=== PATIENT | female | born 1965 | race Caucasian/White ===

== ENCOUNTER 2018-09-02 07:26 | Emergency (ER) | payer MEDICARE, MEDICAID ==
[~2018-09-02] VITALS: Ht 162.6 cm; Wt 104.5 kg
[~2018-09-02 07:26] MED LIST: LORA10TA7 PO; OXYC-150 PO
[2018-09-02 07:33] VITALS: BP 165/114
[2018-09-02] MEDS ORDERED: ketorolac tromethamine 15mg/ml inj. IM ONE (10:05)
== END 2018-09-02 10:48 | disposition home or self-care (01) ==
LOC: ER 07:27
DX: G89.29 Other chronic pain (principal); M54.9 Dorsalgia, unspecified; R10.30 Lower abdominal pain, unspecified
CPT/HCPCS: 72100; 96372; 99283; J1885

== ENCOUNTER 2019-07-17 09:01 | Emergency (ER) | payer MEDICARE, MEDICAID ==
[~2019-07-17] VITALS: Ht 162.6 cm; Wt 110.0 kg
[2019-07-17 10:27] LABS: BASOPHILS % (AUTO) 0.6 % (0-1); EOSINOPHILS # (AUTO) 0.1 X10'3 (0-0.9); EOSINOPHILS % (AUTO) 1.5 % (0-6); HEMATOCRIT 39.7 % (35.0-45.0); HEMOGLOBIN 13.6 g/dl (12.0-16.0); LYMPHOCYTES # (AUTO) 1.2 X10'3 (1.1-4.8); LYMPHOCYTES % (AUTO) 17.1 % (21-51); MEAN CORPUSCULAR HEMOGLOBIN 29.4 PG (27.0-31.0); MEAN CORPUSCULAR HGB CONC 34.3 g/dL (33.0-36.5); MEAN CORPUSCULAR VOLUME 85.6 FL (78-98); MONOCYTES # (AUTO) 0.5 X10'3 (0-0.9); MONOCYTES % (AUTO) 7.4 % (2-12); NEUTROPHILS # (AUTO) 5.2 X10'3 (1.8-7.7); NEUTROPHILS % (AUTO) 73.4 % (42-75); PLATELET COUNT 232 X10'3 (140-440); RED BLOOD COUNT 4.64 X10'6 (4.20-5.60); RED CELL DISTRIBUTION WIDTH 12.4 % (11.5-14.5); WHITE BLOOD COUNT 7.1 X10'3 (4.5-11.0)
[2019-07-17 10:33] LABS: ALANINE AMINOTRANSFERASE 101 U/L (12-78); ALBUMIN 4.1 G/DL (3.4-5.0); ALBUMIN/GLOBULIN RATIO 1.1 (1.1-1.5); ALKALINE PHOSPHATASE 103 IU/L (46-116); ANION GAP 9 (8-16); ASPARTATE AMINO TRANSFERASE 61 U/L (10-37); BILIRUBIN,TOTAL 0.4 MG/DL (0.1-1.0); BLOOD UREA NITROGEN 10 MG/DL (7-18); BUN/CREATININE RATIO 10.8 (6.6-38.0); CALCIUM 9.5 MG/DL (8.5-10.1); CHLORIDE 100 MMOL/L (99-107); CREATININE 0.93 MG/DL (0.40-0.90); GLUCOSE 268 MG/DL (70-104); POTASSIUM 4.1 MMOL/L (3.5-5.1); SODIUM 136 MMOL/L (135-145); TOTAL CARBON DIOXIDE 27.2 MMOL/L (24-32); TOTAL PROTEIN 7.9 G/DL (6.4-8.2); eGFR 63 ML/MIN
[2019-07-17 11:24] VITALS: BP 144/93
[2019-07-17] MEDS ORDERED: ketorolac trometh inj. 60 MG/2 ML VIAL IM ONE (12:00)
== END 2019-07-17 12:11 | disposition home or self-care (01) ==
LOC: ER 09:02
DX: R73.9 Hyperglycemia, unspecified (principal); M79.652 Pain in left thigh; R20.0 Anesthesia of skin; G89.29 Other chronic pain; M79.7 Fibromyalgia; F41.9 Anxiety disorder, unspecified; Z98.890 Other specified postprocedural states; Z79.899 Other long term (current) drug therapy
CPT/HCPCS: 36415; 80053; 85025; 96372; 99283; J1885

== ENCOUNTER 2020-12-28 06:54 | Day surgery (SDC) | payer MEDICARE, MEDICAID ==
[2020-12-20 15:33] LABS: BASOPHILS # (AUTO) 0.1 X10'3 (0-0.2); BASOPHILS % (AUTO) 0.6 % (0-1); EOSINOPHILS # (AUTO) 0.2 X10'3 (0-0.9); EOSINOPHILS % (AUTO) 2.7 % (0-6); LYMPHOCYTES # (AUTO) 2.1 X10'3 (1.1-4.8); LYMPHOCYTES % (AUTO) 24.8 % (21-51); MEAN CORPUSCULAR HEMOGLOBIN 29.2 PG (27.0-31.0); MEAN CORPUSCULAR HGB CONC 33.5 g/dL (33.0-36.5); MEAN CORPUSCULAR VOLUME 87.4 FL (78-98); MEAN PLATELET VOLUME 8.5 FL (7.4-10.4); MONOCYTES # (AUTO) 0.6 X10'3 (0-0.9); MONOCYTES % (AUTO) 7.1 % (2-12); NEUTROPHILS # (AUTO) 5.5 X10'3 (1.8-7.7); NEUTROPHILS % (AUTO) 64.8 % (42-75); PRE OP HEMATOCRIT 41.9 % (35.0-45.0); PRE OP PLATELET COUNT 300 X10'3 (140-440); RED CELL DISTRIBUTION WIDTH 12.8 % (11.5-14.5)
[2020-12-20 15:53] LABS: ALBUMIN 4.1 G/DL (3.4-5.0); ALBUMIN/GLOBULIN RATIO 1.1 (1.1-1.5); ALKALINE PHOSPHATASE 99 IU/L (46-116); BLOOD UREA NITROGEN 16 MG/DL (7-18); BUN/CREATININE RATIO 20.8 (6.6-38.0); CALCIUM 9.3 MG/DL (8.5-10.1); CHLORIDE 101 MMOL/L (99-107); CREATININE 0.77 MG/DL (0.40-0.90); PRE OP ALT 42 U/L (30-65); PRE OP ANION GAP 9 (8-16); PRE OP AST 27 U/L (10-37); PRE OP BILIRUB, TOTAL 0.6 MG/DL (0.0-1.0); PRE OP GLUCOSE 110 MG/DL (70-104); PRE OP POTASSIUM 3.8 MMOL/L (3.4-5.1); PRE OP SODIUM 139 MMOL/L (135-145); eGFR 78 ML/MIN
[~2020-12-28] VITALS: Ht 160 cm; Wt 102.1 kg
[2020-12-28] VITALS (7 sets, daily range): BP systolic 112–142; BP diastolic 52–82
[~2020-12-28 06:54] MED LIST changes: +ATOR40TA72 PO; +BUPIVAcaine/PF 2.5mg/ml (0.25%) 10ml vial ONE; +BUPR450F2 PO; +DULO60CA65 PO; +GABA800T11 PO; +HYDR12.55 PO; +LISI10TA27 PO; -LORA10TA7 PO; +METF-950 PO; -OXYC-150 PO; +OXYC15TA PO; +SITA100T15 PO; +TIZA4TAB5 PO; +TRAZ-256 PO; +cefazolin/dext.iso 2gm/100ml IV ONE; +famotidine 20mg tablet PO ONE; +ringers solution, lacted 1,000 ML IV SCH
[2020-12-28] MEDS ORDERED: cloNIDine hcl/PF 100mcg/ml inj ONE (08:52)
[2020-12-28] MEDS ORDERED: fentaNYL/PF 50MCG/1 ML 2ML syringe ONE (08:53)
[2020-12-28] MEDS ORDERED: midazolam 1 mg/ML 2ml injection ONE (08:53)
[2020-12-28] MEDS ORDERED: propofol inj 20 ML IV ONE (08:53)
[2020-12-28] MEDS ORDERED: ROPIVAcaine 0.5% (5mg/ml) 30ml vial ONE (08:54)
[2020-12-28] MEDS ORDERED: sevoflurane 250ml liquid IH ONE (09:08)
[2020-12-28] MEDS ORDERED: ringers solution, lacted 1,000 ML IV SCH (10:00)
[2020-12-28] MEDS ORDERED: meperidine/PF 25mg/ml syringe IV PRN ×3 (10:00)
[2020-12-28] MEDS ORDERED: proCHLORperazine 10 MG/2 ml inj IV PRN (10:00)
[2020-12-28] MEDS ORDERED: ondansetron/PF 4mg/2ml inj IV PRN (10:00)
[2020-12-28] MEDS ORDERED: morphine 4 MG/ML inj SYRINge IV PRN (10:00)
[2020-12-28] MEDS ORDERED: morphine 2 MG/ML inj. syringe IV PRN (10:00)
--- NOTE | 2020-12-28 10:22 | NUR ---
Received from OR via [facility] , accompanied by Anesthesiologist JUANITA and report given by Anesthesiolgist. PATIENT WITH 20G PIV IN RIGHT UE RUNNING LR AT100. DENIES PAIN AT THIS TIME. PATIENT WITH SLING ON LEFT UE AND DRESSINGS TO DLEFT INDEX AND THUMB. + CAP REFILL. +CAP REFILL AND ALL AREA PWD. Addendum: 12/28/20 at 1033 by Kam Morales RN, RN Amended: Links added.
[2020-12-28] MEDS ORDERED: HYDROcodone/acetaminophen 10/325mg tab PO ONE (11:15)
--- NOTE | 2020-12-28 11:22 | NUR ---
ALL DISCHARGE CRITERIA HAS BEEN MET. VSS, PAIN AT A TOLERABLE LEVEL, VOIDING AND ABLE TO SAFELY AMBULATE AND TRANSFER SELF. IV TAKEN OUT WITHOUT ANY COMPLICATIONS. ALL DISCHARGE INSTRUCTIONS COVERED WITH PATIENT AND ALL QUESTIONS ANSWERED. PATIENT TAKEN OUT VIA WHEELCHAIR TO PERSONAL VEHICLE WHERE FAMILY/FRIEND DROVE PATIENT HOME. DISCUSSED CPAP USE X24 HOURS AND ELEVATION WITH PATIENT AT LENGTH WELL WITH FRIEND WHO WILL BE STAYING WITH PATIENT. Addendum: 12/28/20 at 1137 by Kam Morales RN, RN Amended: Links added.
== END 2020-12-28 11:22 | disposition home or self-care (01) ==
LOC: PAS 06:54
PROVIDERS: ATTEND Orthopaedic Surgery Hand Surgery
DX: M18.12 Unilateral primary osteoarthritis of first carpometacarpal joint, left hand (principal); G56.02 Carpal tunnel syndrome, left upper limb; M19.042 Primary osteoarthritis, left hand; F41.9 Anxiety disorder, unspecified; G89.4 Chronic pain syndrome; I10 Essential (primary) hypertension; F32.89 Other specified depressive episodes; M19.071 Primary osteoarthritis, right ankle and foot; J45.909 Unspecified asthma, uncomplicated; E66.8 Other obesity; Z68.38 Body mass index [BMI] 38.0-38.9, adult; F17.290 Nicotine dependence, other tobacco product, uncomplicated; G47.30 Sleep apnea, unspecified; F41.0 Panic disorder [episodic paroxysmal anxiety]; E11.9 Type 2 diabetes mellitus without complications; G89.18 Other acute postprocedural pain; Z88.5 Allergy status to narcotic agent; Z88.8 Allergy status to other drugs, medicaments and biological substances; Z98.890 Other specified postprocedural states; Z72.89 Other problems related to lifestyle; Z79.84 Long term (current) use of oral hypoglycemic drugs; Z79.899 Other long term (current) drug therapy; Z82.49 Family history of ischemic heart disease and other diseases of the circulatory system; Z83.3 Family history of diabetes mellitus
CPT/HCPCS: 25445; 26860; 36415; 64417; 64721; 76942; 80053; 82948; 85025; 87081; 93005; C1713; C1762; J0735; J2175; J2250; J2270; J2704; J3010; J3490; J7120; A4215; A4618; A7000; J2795